=== PATIENT | male | born 1935 | race Caucasian/White ===

== ENCOUNTER → 2018-05-18 09:51 | Outpatient (CLI) | payer OTHER, SELFPAY ==
--- NOTE | 2018-05-18 | DI.ECHO.S_ITS ---
[facility] +---------+ : : [address] : [place] [place] : : : : [id number] : : : : Phone: [phone]+ Echocardiogram Report + + :Name: GABRIELA GIRALDO Study Date: 05/18/2018 Height: 74 in : :[facility] Weight: 283 lb : : Gender: Male BSA: 2.5 m2 : :: 1935 Age: 82 yrs BP: 138/64 mmHg: :Reason For Study: Aortic valve stenosis : : Performed By: Maday Ramos : :Referring: CHON GONSALEZ : + + Interpretation Summary 1) Normal left ventricular thickness, size, wall motion, and systolic function (EF 60-65%). 2) Normal right ventricular size and function. 3) Moderate aortic stenosis (valve area 1.3cm2, mean gradient 25.6mmHg). 4) Compared to the Echo done 10/23/2016, no significant change. Procedure: A two-dimensional transthoracic echocardiogram with color flow and Doppler was performed. The study quality was technically adequate. Comparison is made with the echocardiogram of 10-23-16. The patient was in normal sinus rhythm during the exam. Left Ventricle: The left ventricle is normal in size. Left ventricular wall thickness is at the upper limits of normal. The ejection fraction is estimated to be 65-70%. Assessment of diastolic parameters indicates a relaxation abnormality of the left ventricle, consistent with normal filling pressures. Right Ventricle: The right ventricle grossly appears normal in size with probable normal systolic function. Atria: The left atrial size is normal. The right atrium is mildly dilated. The interatrial septum is intact with no evidence for an atrial septal defect. Mitral Valve: The mitral valve leaflets appear mildly thickened, but open well. There is mild mitral annular calcification. There is mild mitral regurgitation. Aortic Valve: The aortic valve is moderately calcified. The calculated aortic valve area is 1.3 cm2. The aortic valve area is 1.5 centimeters squared by planimetry. The aortic valve area indexed to the BSA is 0.54 . The peak aortic velocity is 3.4 m/sec. The peak aortic velocity on the previous exam was 3.2 m/sec. The aortic valve mean gradient is 26 mmHg. Severity ratio is 0.35. There is moderate aortic stenosis. There is mild aortic regurgitation. Tricuspid Valve: The tricuspid valve is not well visualized, but is grossly normal. There is trace tricuspid regurgitation. The right ventricular systolic pressure is estimated at 34 mmHg assuming a right atrial pressure of 8 mm Hg. Pulmonic Valve: The pulmonic valve is not well seen, but is grossly normal. There is a trace or physiologic amount of pulmonic regurgitation. Great Vessels: The aortic root is normal size. The ascending aorta is at the upper limits of normal in size. The IVC is dilated (diameter is greater than 2.1 cm) yet it collapses greater than 50% with a sniff. This suggests a right atrial pressure of 8 mm Hg. Pericardium/ Pleura There is no pericardial effusion. There is no pleural effusion. MMode/2D Measurements & Calculations LVIDd: 5.1 cm LVOT diam: 2.2 cm LVIDs: 2.7 cm Ao root diam: 3.5 cm FS: 48.5 % Aortic Jxn: 2.5 cm EPSS: 0.77 cm asc Aorta Diam: 3.9 cm IVSd: 1.0 cm Ao Arch Diam (Prox Trans): 2.9 cm LVPWd: 1.1 cm LV santana. diameter/BSA (cm/m^2): 2.0 LV sys. diameter/BSA (cm/m^2): 1.1 LA dimension: 4.1 cm RA long axis: 5.9 cm LA A2 area: 20.1 cm2 RA area: 26.6 cm2 LA A4 area: 27.4 cm2 RA vol: 102.7 ml LA length (vol): 6.9 cm RA : 40.8 ml/m2 LA vol: 68.3 ml IVC diam: 2.5 cm LA vol index: 27.1 ml/m2 YAQUELIN (plan): 1.5 cm2 Doppler Measurements & Calculations Ao V2 max: 345.1 cm/sec LVOT Max Miah: 112.4 cm/sec Ao V2 mean: 231.4 cm/sec LV V1 max P.1 mmHg Ao max P.6 mmHg LV V1 VTI: 24.8 cm Ao mean P.6 mmHg YAQUELIN(I,D): 1.3 cm2 Ao V2 VTI: 71.9 cm YAQUELIN(V,D): 1.3 cm2 sev ratio: 0.35 YAQUELIN indexed to BSA (cm^2/m^2): 0.54 MV E max miah: 98.3 cm/sec TR max miah: 255.8 cm/sec MV A max miah: 95.1 cm/sec TR max P.2 mmHg MV E/A: 1.0 PA V2 max: 127.2 cm/sec Med Peak E' Miah: 6.3 cm/sec PA V2 mean: 79.1 cm/sec E/E' med: 15.6 PA mean P.0 mmHg Lat Peak E' Miah: 8.8 cm/sec PA Accel Time: 0.14 sec E/E' lat: 11.1 E/e' average: 13.3 MV dec time: 0.25 sec MV P1/2t: 72.9 msec MV P1/2t max miah: 97.9 cm/sec MVA(P1/2t): 3.0 cm2 Reading Physician:03:57 PM
== END ==
PROVIDERS: PCP Physician Assistant; Visit Provider Physician Assistant
DX: I35.0 Nonrheumatic aortic (valve) stenosis (principal)
CPT/HCPCS: 93306

== ENCOUNTER → 2018-08-11 13:00 | Outpatient (CLI) | payer OTHER, SELFPAY ==
--- NOTE | 2018-08-11 | DI.RAD.S_ITS ---
PROCEDURE: XR THORACIC SPINE 3V INDICATIONS: OTHER DORSALGIA TECHNIQUE: 3 views of the thoracic spine were acquired. COMPARISON: [facility], CT, CHEST/ABD/PEL WITH CONTRAST, 05/13/2017, 13:28. [facility], CT, HEAD WITHOUT CONTRAST, 10/21/2016, 15:02. FINDINGS: Bones: No fractures or dislocations. There is a moderate degree of degenerative disc disease along the thoracic spine, as was previously the case during CT scanning that included the chest from 05/13/17. No suspicious bony lesions. 12 pairs of ribs are noted, and appear intact where visualized. Soft tissues: No paravertebral stripe thickening. 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 No trauma, no subluxation present. Dictated by: Benoit Cotto M.D. on 08/11/2018 at 13:48 Approved by: Benoit Cotto M.D. on 08/11/2018 at 13:51
--- NOTE | 2018-08-11 | DI.RAD.S_ITS ---
PROCEDURE: XR LUMBAR SPINE 2-3V INDICATIONS: OTHER DORSALGIA TECHNIQUE: 3 views of the lumbar spine were acquired. COMPARISON: [facility], CR, XR THORACIC SPINE 3V, 08/11/2018, 12:40. [facility], CR, ABDOMEN 2 VIEW, 07/01/2017, 15:50. [facility], CT, CHEST/ABD/PEL WITH CONTRAST, 05/13/2017, 13:28. FINDINGS: Bones: 5 [id number] vertebrae are present. There is normal bony alignment. No vertebral body compression fractures. There is moderately severe degenerative disc disease and facet osteoarthritis along lumbosacral spine equivalent to that seen during abdomen/pelvis CT scanning 05/13/17. No suspicious bony lesions. Soft tissues: Overlying bowel gas pattern is normal. No suspicious soft tissue calcifications. 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 Dictated by: Benoit Cotto M.D. on 08/11/2018 at 13:46 Approved by: Benoit Cotto M.D. on 08/11/2018 at 13:48
== END ==
PROVIDERS: PCP Physician Assistant; Visit Provider Physician Assistant
DX: M54.89 Other dorsalgia (principal); M51.37 Other intervertebral disc degeneration, lumbosacral region; M51.34 Other intervertebral disc degeneration, thoracic region; M47.817 Spondylosis without myelopathy or radiculopathy, lumbosacral region; M47.814 Spondylosis without myelopathy or radiculopathy, thoracic region
CPT/HCPCS: 72072; 72100

== ENCOUNTER → 2018-08-18 10:09 | Outpatient (CLI) | payer OTHER, SELFPAY ==
--- NOTE | 2018-08-18 | DI.RAD.S_ITS ---
PROCEDURE: XR HIP W PEL IF DONE LT MIN 4V INDICATIONS: LEFT HIP PAIN TECHNIQUE: AP pelvis with lateral view(s) of the bilateral hip(s). COMPARISON: None. FINDINGS: Bones: No fractures or dislocations but there is hip joint osteoarthritis that is slightly greater on the left than the right. Pelvic ring appears intact. No suspicious bony lesions. Soft tissues: The visualized bowel gas pattern is normal. No suspicious soft tissue calcifications. IMPRESSION: Moderate bilateral hip joint osteoarthritis slightly greater on the left than the right. No trauma found. Dictated by: Benoit Cotto M.D. on 08/18/2018 at 11:07 Approved by: eBnoit Cotto M.D. on 08/18/2018 at 11:08
== END ==
PROVIDERS: PCP Physician Assistant; Visit Provider Physician Assistant
DX: M25.552 Pain in left hip (principal); M16.0 Bilateral primary osteoarthritis of hip
CPT/HCPCS: 73522